=== PATIENT | male | born 1965 | race American Indian/Alaskan Native ===

== ENCOUNTER 2017-09-15 02:04 | Inpatient (IN) | payer MEDICARE, OTHER ==
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
[2017-09-15 04:08] LABS: Basophils % (Auto) 0.2 % (0.0-1.8); Eosinophils % (Auto) 0.1 % (0.0-4.3); Mean Corpuscular HGB Conc 33 % (32-34); Mean Corpuscular Hemoglobin 28 pg (28-32); Mean Corpuscular Volume 86 fl (84-94); Platelet Count 247 K/mm3 (140-440); Red Blood Count 5.37 M/mm3 (3.65-5.03); White Blood Count 15.4 K/mm3 (4.5-11.0)
[2017-09-15 04:30] LABS: Alanine Aminotransferase 25 units/L (7-56); Albumin 4.8 g/dL (3.9-5); Albumin/Globulin Ratio 1.7 %; Alkaline Phosphatase 81 units/L (35-129); Anion Gap 26 mmol/L; BUN/Creatinine Ratio 9; Blood Urea Nitrogen 10 mg/dL (9-20); Calcium 9.6 mg/dL (8.4-10.2); Carbon Dioxide 20 mmol/L (22-30); Chloride 96.2 mmol/L (98-107); Glucose 143 mg/dL (75-100); Potassium 4.6 mmol/L (3.6-5.0); Sodium 138 mmol/L (137-145); Total Protein 7.7 g/dL (6.3-8.2)
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
[2017-09-15] MEDS: ATIVAN IM PRN ×3 (05:55→21:38)
[2017-09-15 06:32] LABS: Creatine Kinase MB 1.5 ng/mL (0.0-4.0)
[2017-09-15 06:36] LABS: Creatine Kinase 177 units/L (55-170)
[2017-09-15] MEDS: KEPPRA 1,000 MG/NS 0.75% 100ML 1,000 MG/100 ML BAG IV SCH ×2 (07:02→21:36)
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
[2017-09-15] MEDS ORDERED: ATIVAN IV PRN (09:07)
[2017-09-15] MEDS ORDERED: KEPPRA 1,000 MG in D5W 100 ML IV SCH (10:00)
[2017-09-15 10:48] LABS: Urine Drugs of Abuse Note Disclamer
[2017-09-15 11:04] LABS: Bilirubin,Urine NEG (Negative); Blood,Urine SM (Negative); Ketones,Urine TR mg/dL (Negative); Leukocyte Esterase,Urine TR (Negative); Mucus,Urine FEW /HPF; Nitrite,Urine NEG (Negative); Urobilinogen,Urine < 2.0 mg/dL (<2.0)
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
[2017-09-15] MEDS ORDERED: NACL 0.9% 1000 ML 1,000 ML IV SCH (15:00)
[2017-09-15] MEDS ORDERED: HABITROL TD SCH (23:45)
[2017-09-16 05:46] LABS: Basophils % (Auto) 0.7 % (0.0-1.8); Eosinophils % (Auto) 0.5 % (0.0-4.3); Hematocrit 43.5 % (35.5-45.6); Hemoglobin 14.4 gm/dl (11.8-15.2); Mean Corpuscular HGB Conc 33 % (32-34); Mean Corpuscular Hemoglobin 28 pg (28-32); Mean Corpuscular Volume 86 fl (84-94); Platelet Count 224 K/mm3 (140-440); Red Blood Count 5.07 M/mm3 (3.65-5.03); Red Cell Distribution Width 14.7 % (13.2-15.2)
[2017-09-16 06:03] LABS: Anion Gap 19 mmol/L; BUN/Creatinine Ratio 10; Blood Urea Nitrogen 9 mg/dL (9-20); Calcium 8.5 mg/dL (8.4-10.2); Carbon Dioxide 21 mmol/L (22-30); Chloride 104.8 mmol/L (98-107); Glucose 96 mg/dL (75-100); Potassium 3.6 mmol/L (3.6-5.0); Sodium 141 mmol/L (137-145)
[2017-09-16] MEDS: KEPPRA 1,000 MG/NS 0.75% 100ML 1,000 MG/100 ML BAG IV SCH (06:34)
--- NOTE | 2017-09-16 08:22 | Consultation ---
History of Present Illness Consult date: 09/16/17 History of present illness: spoke to and the major issue with compliance is just that patient wanted to see if he still needed meds... in past seizures controlled with topamax and keppra Past History Past Medical History: seizures Past Surgical History: Other (lyndsay surgery) Social history: denies: smoking, alcohol abuse Family history: diabetes, hypertension Medications and Allergies Allergies Allergy/AdvReac Type Severity Reaction Status Date / Time seafood AdvReac Unknown Uncoded 09/15/17 02:16 Home Medications Medication Instructions Recorded Confirmed Last Taken Type Topiramate [Topamax] 50 mg PO BID 09/15/17 09/15/17 09/14/17 History Active Meds: Active Medications Levetiracetam (Keppra 1,000 Mg/Ns 0.75% 100ml) 1,000 mg in 100 mls @ 300 mls/ hr IV Q12H LUIS Last Admin: 09/16/17 06:34 Dose: 300 mls/hr Levofloxacin/Dextrose (Levaquin 750mg/150ml) 750 mg in 150 mls @ 100 mls/hr IV Q24HR LUIS PRN Reason: Protocol Sodium Chloride (Nacl 0.9% 1000 Ml) 1,000 mls @ 75 mls/hr IV DIRECT LUIS Last Admin: 09/16/17 06:35 Dose: 75 mls/hr Lorazepam (Ativan) 1 mg IM Q1H PRN PRN Reason: Agitation Last Admin: 09/15/17 21:38 Dose: 1 mg Lorazepam (Ativan) 2 mg IV Q4H PRN PRN Reason: Seizures Nicotine (Habitrol) 21 mg TD QDAY LUIS Last Admin: 09/15/17 23:53 Dose: 21 mg Physical Examination - Vital Signs Vital Signs: Vital Signs Resp 20 09/15/17 02:08 Results - Laboratory Findings CBC and BMP: 09/16/17 05:00 09/16/17 05:00 Abnormal Lab Findings: Abnormal Labs 09/15/17 09/15/17 09/15/17 03:40 03:40 05:40 WBC 15.4 H RBC 5.37 H Hct 46.0 H Lymph % (Auto) 6.2 L [place] % (Auto) Lymph # 1.0 L [place] # 0.9 H Seg Neutrophils % 87.6 H Seg Neutrophils # 13.5 H Chloride 96.2 L Carbon Dioxide 20 L Glucose 143 H Total Creatine Kinase 177 H Urine WBC (Auto) 09/15/17 09/16/17 09/16/17 10:15 05:00 05:00 WBC RBC 5.07 H Hct Lymph % (Auto) [place] % (Auto) 9.4 H Lymph # [place] # 1.0 H Seg Neutrophils % Seg Neutrophils # Chloride Carbon Dioxide 21 L Glucose Total Creatine Kinase Urine WBC (Auto) 15.0 H
[2017-09-16 09:44] VITALS: BP 114/81
[2017-09-16] MEDS ORDERED: LEVAQUIN 750MG/150ML 750 MG/150 ML BAG IV SCH (10:00)
[2017-09-16] MEDS ORDERED: HABITROL TD SCH (10:00)
--- NOTE | 2017-09-16 10:58 | Progress Note ---
Hospitalist Physical - Constitutional Vitals: Temp Pulse Resp BP Pulse Ox 97.8 F 94 H 18 114/81 95 09/16/17 07:44 09/16/17 07:44 09/16/17 07:44 09/16/17 07:44 09/16/17 07:44 General appearance: Present: no acute distress, other (postictal) Results - Labs CBC & Chem 7: 09/16/17 05:00 09/16/17 05:00 Labs: Laboratory Last Values WBC 11.0 K/mm3 (4.5-11.0) 09/16/17 05:00 RBC 5.07 M/mm3 (3.65-5.03) H 09/16/17 05:00 Hgb 14.4 gm/dl (11.8-15.2) 09/16/17 05:00 Hct 43.5 % (35.5-45.6) 09/16/17 05:00 MCV 86 fl (84-94) 09/16/17 05:00 MCH 28 pg (28-32) 09/16/17 05:00 MCHC 33 % (32-34) 09/16/17 05:00 RDW 14.7 % (13.2-15.2) 09/16/17 05:00 Plt Count 224 K/mm3 (140-440) 09/16/17 05:00 Lymph % (Auto) 27.2 % (13.4-35.0) 09/16/17 05:00 [place] % (Auto) 9.4 % (0.0-7.3) H 09/16/17 05:00 Eos % (Auto) 0.5 % (0.0-4.3) 09/16/17 05:00 Baso % (Auto) 0.7 % (0.0-1.8) 09/16/17 05:00 Lymph # 3.0 K/mm3 (1.2-5.4) 09/16/17 05:00 [place] # 1.0 K/mm3 (0.0-0.8) H 09/16/17 05:00 Eos # 0.1 K/mm3 (0.0-0.4) 09/16/17 05:00 Baso # 0.1 K/mm3 (0.0-0.1) 09/16/17 05:00 Seg Neutrophils % 62.2 % (40.0-70.0) 09/16/17 05:00 Seg Neutrophils # 6.8 K/mm3 (1.8-7.7) 09/16/17 05:00 Sodium 141 mmol/L (137-145) 09/16/17 05:00 Potassium 3.6 mmol/L (3.6-5.0) D 09/16/17 05:00 Chloride 104.8 mmol/L (98-107) 09/16/17 05:00 Carbon Dioxide 21 mmol/L (22-30) L 09/16/17 05:00 Anion Gap 19 mmol/L 09/16/17 05:00 BUN 9 mg/dL (9-20) 09/16/17 05:00 Creatinine 0.9 mg/dL (0.8-1.5) 09/16/17 05:00 Estimated GFR > 60 ml/min 09/16/17 05:00 BUN/Creatinine Ratio 10 % 09/16/17 05:00 Glucose 96 mg/dL (75-100) 09/16/17 05:00 Lactic Acid 1.10 mmol/L (0.7-2.0) 09/15/17 16:19 Calcium 8.5 mg/dL (8.4-10.2) 09/16/17 05:00 Total Bilirubin 0.70 mg/dL (0.1-1.2) 09/15/17 03:40 AST 25 units/L (5-40) 09/15/17 03:40 ALT 25 units/L (7-56) 09/15/17 03:40 Alkaline Phosphatase 81 units/L (35-129) 09/15/17 03:40 Total Creatine Kinase 177 units/L (55-170) H 09/15/17 05:40 CK-MB (CK-2) 1.5 ng/mL (0.0-4.0) 09/15/17 05:40 CK-MB (CK-2) Rel Index 0.8 (0-4) 09/15/17 05:40 Troponin T < 0.010 ng/mL (0.00-0.029) 09/15/17 05:40 Total Protein 7.7 g/dL (6.3-8.2) 09/15/17 03:40 Albumin 4.8 g/dL (3.9-5) 09/15/17 03:40 Albumin/Globulin Ratio 1.7 % 09/15/17 03:40 Urine Color Yellow (Yellow) 09/15/17 10:15 Urine Turbidity Clear (Clear) 09/15/17 10:15 Urine pH 5.0 (5.0-7.0) 09/15/17 10:15 Ur Specific [place] 1.017 (1.003-1.030) 09/15/17 10:15 Urine Protein 30 mg/dl mg/dL (Negative) 09/15/17 10:15 Urine Glucose (UA) Neg mg/dL (Negative) 09/15/17 10:15 Urine Ketones Tr mg/dL (Negative) 09/15/17 10:15 Urine Blood Sm (Negative) 09/15/17 10:15 Urine Nitrite Neg (Negative) 09/15/17 10:15 Urine Bilirubin Neg (Negative) 09/15/17 10:15 Urine Urobilinogen < 2.0 mg/dL (<2.0) 09/15/17 10:15 Ur Leukocyte Esterase Tr (Negative) 09/15/17 10:15 Urine WBC (Auto) 15.0 /HPF (0.0-6.0) H 09/15/17 10:15 Urine RBC (Auto) 2.0 /HPF (0.0-6.0) 09/15/17 10:15 Hyaline Casts 1 /LPF 09/15/17 10:15 Urine Mucus Few /HPF 09/15/17 10:15 Urine Opiates Screen Presumptive negative 09/15/17 10:15 Urine Methadone Screen Presumptive negative 09/15/17 10:15 Ur Barbiturates Screen Presumptive negative 09/15/17 10:15 Ur Phencyclidine Scrn Presumptive negative 09/15/17 10:15 Ur Amphetamines Screen Presumptive negative 09/15/17 10:15 U Benzodiazepines Scrn Presumptive negative 09/15/17 10:15 Urine Cocaine Screen Presumptive negative 09/15/17 10:15 U Marijuana (THC) Screen Presumptive positive 09/15/17 10:15 Drugs of Abuse Note Disclamer 09/15/17 10:15
--- NOTE | 2017-09-16 11:05 | Discharge Summary ---
<ADONIS RODRIGUES - Last Filed: 09/16/17 16:57> Providers - Providers Date of Admission: 09/15/17 06:06 Date of discharge: 09/16/17 Attending physician: AUDRA LATHAM MD 09/15/17 09:02 Consult to Physician [CONS] Routine Consulting Provider: LISA CANADA Reason For Exam: SZ Place consult to:: NEURO Notified:: Y Was contact made?: Yes If yes, spoke with:: OFFICE BERNARDO Time called:: 09:50 Primary care physician: [employer] Hospitalization Condition: Serious Hospital course: Patient is a 51 year-old male with a past medical history of seizures and brain surgery presents to the hospital complaints of seizures status epilepticus.Upon my evaluation patient is postictal; therefore unable to provide detailed history. Per , patient had a total of 6 seizures since 1:00AM. Patient was diagnosed with acute metabolic encephalopathy, Status Epilepticus, Sepsis, Urinary tract infection and Aspiration Pneumonitis. CT of the head and cervical spine unremarkable. MRI of the brain no acute intracranial process. He was treated with supplemental oxygen, IV anticonvulsant and IV antibiotics. Patient completed a full course of antibiotic. No further antibiotic needed. He is being discharged on oral anticonvulsant. Patient clinically improved and stable for discharge. Patient was advised to follow up with his primary care. Discharge Diagnose Acute Metabolic encephalopathy Status Epilepticus Sepsis Urinary tract infection Aspiration Pneumonitis Disposition: DC-01 TO HOME OR SELFCARE Core Measure Documentation - Palliative Care Palliative Care/ Comfort Measures: Not Applicable - Core Measures Any of the following diagnoses?: none Exam - Constitutional Vitals: Temp Pulse Resp BP Pulse Ox 97.8 F 94 H 18 114/81 95 09/16/17 07:44 09/16/17 07:44 09/16/17 07:44 09/16/17 07:44 09/16/17 07:44 General appearance: Present: no acute distress - EENT Eyes: Present: PERRL ENT: hearing intact - Neck Neck: Present: supple - Respiratory Respiratory effort: normal Respiratory: bilateral: CTA - Cardiovascular Rhythm: regular Heart Sounds: Present: S1 & S2 - Abdominal General gastrointestinal: Present: soft, non-tender Male genitourinary: Present: deferred - Rectal Rectal Exam: deferred - Integumentary Integumentary: Present: clear, warm, dry - Musculoskeletal Musculoskeletal: strength equal bilaterally - Psychiatric Psychiatric: appropriate mood/affect - Neurologic Neurologic: moves all extremities - Allied Health Allied health notes reviewed: nursing Plan Diet: low fat, low cholesterol, low salt Additional Instructions: Follow-up with 2 weeks of discharge with [facility] Follow up with: PRIMARY MD ANTON [Primary Care Provider] - 7 Days LISA CANADA MD [Staff Physician] - 7 Days Prescriptions: levETIRAcetam [Keppra] 500 mg PO BID 30 Days tablet Topiramate [Topamax] 50 mg PO BID 30 Days tablet <AUDRA LATHAM - Last Filed: 09/19/17 07:21> Providers - Providers Date of Admission: 09/15/17 06:06 Attending physician: AUDRA LATHAM MD 09/15/17 09:02 Consult to Physician [CONS] Routine Consulting Provider: LSIA CANADA Reason For Exam: SZ Place consult to:: NEURO Notified:: Y Was contact made?: Yes If yes, spoke with:: OFFICE BERNARDO Time called:: 09:50 Primary care physician: [employer] Hospitalization Reason for admission: seizure Pertinent studies: CT head normal Hospital course: Patient was seen and evaluated and he didn't have fever, cough or any signs of aspiration pneumonitis and didn't need antibiotics at discharge. Time spent for discharge: 31 minutes Core Measure Documentation - Palliative Care Palliative Care/ Comfort Measures: Not Applicable - Core Measures Any of the following diagnoses?: none Exam - Constitutional Vitals: Temp Pulse Resp BP Pulse Ox 97.8 F 94 H 18 114/81 95 09/16/17 07:44 09/16/17 07:44 09/16/17 07:44 09/16/17 07:44 09/16/17 07:44 Plan Activity: no restrictions Diet: low cholesterol
== END 2017-09-16 15:46 | disposition home or self-care (01) | DRG 871 ==
LOC: ED 02:04 → 4A 06:06
PROVIDERS: ADMIT Internal Medicine; ATTEND Internal Medicine
DX: A41.9 Sepsis, unspecified organism (principal); G93.41 Metabolic encephalopathy; J69.0 Pneumonitis due to inhalation of food and vomit; N39.0 Urinary tract infection, site not specified; G40.901 Epilepsy, unspecified, not intractable, with status epilepticus; Z91.013 Allergy to seafood; Z82.49 Family history of ischemic heart disease and other diseases of the circulatory system; Z91.19 Patient's noncompliance with other medical treatment and regimen; Z83.3 Family history of diabetes mellitus
CPT/HCPCS: 36415; 70450; 80048; 80053; 80307; 81001; 82140; 82550; 82553; 82962; 84484; 85025; 87040; 87086; 93005; 93010; 95819; 96365; 96372; 99285; 99406; J1953; J1956; J2060; J7030